=== PATIENT | female | born 1930 | race Caucasian/White ===

== ENCOUNTER → 2017-07-04 | Outpatient (CLI) | payer BC | END | disposition home or self-care (01) | LOC: ECHO 09:34 | DX: I35.1 Nonrheumatic aortic (valve) insufficiency (principal); R60.0 Localized edema | CPT/HCPCS: 93306 ==

== ENCOUNTER → 2017-07-27 | Outpatient (CLI) | payer BC ==
[2017-07-27] MEDS: ZOLPIDEM 5 MG TABLET. PO (23:30)
== END | disposition home or self-care (01) ==
LOC: SLPLAB 18:25
DX: R60.0 Localized edema (principal)
CPT/HCPCS: 95810

== ENCOUNTER → 2019-06-06 | Day surgery (SDC) | payer BC ==
[~2019-06-06] MED LIST: LIDOCAINE 1%/EPI 1:100,000 20 ML VIAL. INJ ONE; PROPOFOL 20 ML IV ONE
[2019-06-06 11:45] VITALS: BP 137/64
--- NOTE | 2019-06-06 12:21 | PDOC4 ---
Operative Note Operative Note Date: 06/06/2019 Preoperative diagnosis: Skin lesion left forearm Operative diagnosis: Same Procedure: Excision of skin lesion Surgeon: Stew Specimen left forearm skin lesion Dictation: Patient is a 88-year-old female is had a lesion on her left forearm that's been nonhealing and draining on occasion been getting larger over the last several years. Procedure of excision of lesion was explained to the patient detail risk benefits were also discussed including bleeding infection alternatives this procedure also discussed with the patient who seemed to understand and gave both verbal and written consent had procedure performed. Patient was taken to the miners room placed in supine position her left forearm was prepped and draped usual sterile fashion using ChloraPrep skin lesion was approximately 2 cm in diameter area around the lesion was injected with 1% lidocaine with epinephrine elliptical incision was made with 15 blade scalpel was carried down through the subcutaneous tissues the mass was completely excised. The wound was then closed in single layer of 3-0 nylon single i nterrupted sutures. Wound was then dressed with 4 x 4's and Kerlix wrap. Patient tolerated procedure well was discharged home in stable condition. Estimate blood loss less than 5 mL BINA MCKNIGHT MD Jun 06, 2019 12:21
--- NOTE | 2019-06-06 12:22 | DISCH ---
DISCHARGE INSTRUCTIONS Condition on Discharge Condition on Discharge: Stable Activity After Discharge Activity Instructions for Disc: No restrictions Diet after Discharge Diet after Discharge: Regular Wound Incision Care Other wound/incision instructi: sejal shower 24 hours Contacting the DRJonel after DC Call your doctor for: If your condition worsens Follow-Up Follow up with: Dr. Mcknight in 2 weeks BINA MCKNIGHT MD Jun 06, 2019 12:22
== END | disposition home or self-care (01) ==
LOC: SURG 11:14
PROVIDERS: ATTEND Surgery
DX: L72.8 Other follicular cysts of the skin and subcutaneous tissue (principal); C44.619 Basal cell carcinoma of skin of left upper limb, including shoulder; I10 Essential (primary) hypertension; E66.9 Obesity, unspecified; Z85.3 Personal history of malignant neoplasm of breast; Z85.42 Personal history of malignant neoplasm of other parts of uterus; Z72.89 Other problems related to lifestyle
CPT/HCPCS: 11402; 88304; J3490; J2704

== ENCOUNTER → 2020-12-15 | Outpatient (CLI) | payer BC ==
[2019-06-06 11:45] VITALS: BP 137/64
--- NOTE | 2020-12-15 17:24 | KCIC ---
Exam performed: 2 views of the chest. Indication: Reason: Dyspnea on exertion, ongoing SOA walking short distances. / Spl. Instructions: / History: Date of Service: 12/15/2020 2:44 PM. Comparison : 2 views chest from 09/15/2016 Findings: PA and lateral radiographs of the chest reveal a normal cardiomediastinal contour. Artery vascularity is unremarkable. There are minimal linear bibasilar opacities likely atelectasis. No focal infiltrat es, effusion or pneumothorax seen. The visualized osseous structures are unremarkable. Impression: Linear bibasilar opacities likely atelectasis. Electronically signed by: Marta Dietz MD (12/15/2020 5:21 PM) [id number]
== END ==
LOC: KCIC 14:41
PROVIDERS: ATTEND Family Medicine
DX: R06.09 Other forms of dyspnea (principal)
CPT/HCPCS: 71046